=== PATIENT | female | born 1975 | race Caucasian/White ===

== ENCOUNTER → 2019-01-15 | Outpatient (CLI) | payer OTHER | LOC: COL.RAD 09:43 | DX: E04.2 Nontoxic multinodular goiter (principal) ==

== ENCOUNTER → 2019-03-22 | Outpatient (CLI) | payer OTHER | LOC: MC.RAD 02-17 09:45 | DX: Z12.31 Encounter for screening mammogram for malignant neoplasm of breast (principal) ==